=== PATIENT | male | born 1975 | race Two or more races ===

== ENCOUNTER 2025-02-24 08:01 | Outpatient (CLI) | payer OTHER ==
[2025-02-24 09:27] LABS: HEMATOCRIT 44.5 % (39.0-48.0); HEMOGLOBIN 15.2 g/dL (13-16.00); MEAN CELL VOLUME 98.1 fL (80.0-100.00); MEAN CORPUSCULAR HEMOGLOBIN 33.6 pg (27.00-32.0); MEAN CORPUSCULAR HGB CONC 34.2 g/dl (32.0-36.0); PLATELET COUNT 267 K/uL (150-450); RED BLOOD COUNT 4.54 M/uL (4.00-6.00); RED CELL DISTRIBUTION WIDTH 15.7 % (11.5-14.5)
[2025-02-24 10:01] LABS: % SATURACION 32.7 % (20-50); ALBUMIN 4.1 gm/dL (3.4-5.0); BILIRUBIN TOTAL 0.33 mg/dL (0.3-1.2); CALCIUM 9.7 mg/dL (8.5-10.1); CREATININE SERUM 0.99 mg/dL (0.70-1.30); FERRITIN 182.8 NG/ML (26-388); GFR 79.69; GLOBULINA 3.1 G/DL (2.4-3.5); POTASSIUM 5.07 mEq/L (3.5-5.1); T4 FREE 0.95 NG/ML (0.76-1.46); TOTAL PROTEIN 7.2 gm/dL (6.4-8.2); TSH 0.447 uIU/mL (0.358-3.74)
[2025-02-26 09:29] LABS: PLATELET ESTIMATE NORMAL (NORMAL)
[2025-02-26 13:38] LABS: FOLIC ACID 14.47 ng/ml (4.78-20); VITAMIN D3 25 HYDROXY 49.14 ng/ml (30-120)
== END 2025-02-24 08:02 | disposition home or self-care (01) ==
LOC: EDBD 08:01 → LAB 08:01
PROVIDERS: ATTEND Internal Medicine Hematology & Oncology
DX: D72.828 Other elevated white blood cell count (principal); D51.3 Other dietary vitamin B12 deficiency anemia; J45.998 Other asthma; D50.8 Other iron deficiency anemias; R79.9 Abnormal finding of blood chemistry, unspecified; I10 Essential (primary) hypertension; R74.02 Elevation of levels of lactic acid dehydrogenase [LDH]; K76.89 Other specified diseases of liver; D55.0 Anemia due to glucose-6-phosphate dehydrogenase [G6PD] deficiency; D51.1 Vitamin B12 deficiency anemia due to selective vitamin B12 malabsorption with proteinuria; D51.0 Vitamin B12 deficiency anemia due to intrinsic factor deficiency; E55.9 Vitamin D deficiency, unspecified; Z13.29 Encounter for screening for other suspected endocrine disorder; E03.8 Other specified hypothyroidism; E06.3 Autoimmune thyroiditis; B17.9 Acute viral hepatitis, unspecified

== ENCOUNTER → 2025-10-27 09:50 | Outpatient (CLI) | payer OTHER ==
[2025-10-27 10:20] LABS: BASO % 1.7 % (0.1-1.2); EOS # 0.47 (0.04-0.54); EOS % 4.8 % (0.7-7.0); LYMPH # 1.72 (1.18-3.74); LYMPH % 17.6 % (19.3-53.1); MEAN PLATELET VOLUME 9.30 fl (9.4-12.4); MONO # 0.72 (0.24-0.82); MONO % 7.4 % (4.7-12.5); NEUT # 6.66 (1.56-6.13); NEUT % 68.2 % (34.0-71.1); RED CELL DISTRIBUTION WIDTH 13.7 % (11.6-14.4)
[2025-10-27 11:46] LABS: % SATURACION 28.1 % (20-50); ALT/SGPT 26.0 U/L (12-78); AST/SGOT 22.0 U/L (15-37); BILIRUBIN TOTAL 0.41 mg/dL (0.3-1.2); BUN CREA RATIO 19.0 (7.0-25.0); CREATININE SERUM 1.03 mg/dL (0.70-1.30); FE 74.0 ug/dl (65-175); GFR 75.83; GLOBULINA 3.3 G/DL (2.4-3.5); GLUCOSE FASTING 93.0 mg/dL (65-100); LDH 152.0 U/L (87-241); OSMOLALITY SERUM 285.0 MOSM/KG (275-295); PROSTATIC SPECIFIC ANTIGEN 1.5 NG/ML (0.010-4.00)
[2025-10-29 10:59] LABS: FOLIC ACID 10.49 ng/ml (4.78-20); VITAMIN D3 25 HYDROXY 45.02 ng/ml (30-120)
== END | disposition home or self-care (01) ==
LOC: LAB 09:50
PROVIDERS: ATTEND Internal Medicine Hematology & Oncology
DX: D50.8 Other iron deficiency anemias (principal); I10 Essential (primary) hypertension; R74.02 Elevation of levels of lactic acid dehydrogenase [LDH]; K76.89 Other specified diseases of liver; R97.0 Elevated carcinoembryonic antigen [CEA]; D72.828 Other elevated white blood cell count; D51.3 Other dietary vitamin B12 deficiency anemia; J45.998 Other asthma